=== PATIENT | female | born 1935 | race Caucasian/White ===

== ENCOUNTER 2024-02-16 16:32 | Observation (INO) | payer OTHER, SELFPAY ==
--- NOTE | 2024-02-16 09:52 | ED.GENMED ---
History of Present Illness
<Eileen Alvarez PA-C - Last Filed: 02/16/24 16:59>
General
Chief Complaint: Chest Pain
Source: patient
Exam Limitations: none
Time Seen by Provider: 02/16/24 09:33
Nursing documentation reviewed up to this point in time: agreed with
History of Present Illness
History of Present Illness:
pt is a 88 y/o F with h/o former smoking
CHF on lasix
followed by [facility]
says she woke up and a little while later around 6 am started feeling SOB with wheezing.
she has previously had inhaler/neb for something like this when she had CHF but she didn't use it today. pt has not had any significant ches tpain, pleuritic cp, cough, fever/chills, cold symptoms.
she denies leg swelling
she thinks the wheezing is a little better now
has had covid vaccine.
pt is on prednisone taper for TMJ that her PCP prescribed
she has had it for 5 days
Past History
<Eileen Alvarez PA-C - Last Filed: 02/16/24 16:59>
Past History
ED Past Medical History: CHF, COPD and HTN
Social History
Tobacco: Former smoker
Alcohol: None
Review of Systems
<Eileen Alvarez PA-C - Last Filed: 02/16/24 16:59>
Review of Systems
Allergies reviewed?: Yes
All Other Systems: Not applicable
Phy Exam
<Eileen Alvarez PA-C - Last Filed: 02/16/24 16:59>
Physical Exam
Physical Exam:
GENERAL: Alert , in no apparent distress
EYE: pupils equal and reactive
NECK: Supple
ENT: o/p clr, mmm.
CARDIAC: Regular rate and rhythm .+ systolic murmur L sternal border, no edema
LUNGS: faint end exp wheezing, no resp distress, moving good air, no cough
ABDOMEN: Soft, without focal tenderness, no r/g, no cvat, normal bowel sounds
NEUROLOGICAL: Alert and oriented, no focal neuro deficits
SKIN: Warm and dry, skin intact.
MUSCULOSKELETAL: No edema, well perfused. neg jeffrey's sign
PSYCH: Normal and appropriate interaction.
Scores
<Eileen Alvarez PA-C - Last Filed: 02/16/24 16:59>
Heart Score for Chest Pain Patients
STEMI patient?: No
History: Slightly or Non-Suspicious
ECG: Nonspecific Repolarization
Age: >/= 65 years
Risk Factors: >/= 3 Risk Factors or History of CAD
Troponin: </= Normal Limit
Heart Score for Chest Pain Patients: 5
Heart Score Risk: 20.3% MACE over next 6 weeks
<Familia Crandall DO - Last Filed: 02/16/24 17:02>
Heart Score for Chest Pain Patients
Heart Score for Chest Pain Patients: 5
Heart Score Risk: 20.3% MACE over next 6 weeks
Course
<Eileen Alvarez PA-C - Last Filed: 02/16/24 16:59>
Orders/Labs/Results
Orders:
Orders
02/16/24 09:19
Electrocardiogram (*1) Urgent
Reason for Study: Chest Pain
EKG- Treatment ONCE
02/16/24 09:51
Ipratropium/Albuterol Sulfate [Duoneb] 3 ml INH R NOW STA
CR Chest - 2 Views Urgent
Comment:
Reason For Exam: wheezing
02/16/24 10:24
COVID-19 Antigen Urgent
Source: Nasal Swab
Complete Blood Count/With Diff Urgent
Comprehensive Metabolic Panel Urgent
NT-proBNP Urgent
Troponin I Urgent
Influenza A+B Rapid Molecular Urgent
ELIS Source: Nasal Swab
Specimen Description:
02/16/24 11:45
Furosemide [Lasix] 40 mg IV NOW STA
02/16/24 16:02
Admit/Transfer Patient As Directed
Co-Sign Provider:
Level of Care: Observation services
Assign to:: Telemetry
Physician / Group: wilfredo
Diagnosis: viral bronchitis
Reason for Telemetry: Arrhythmia
Date to Stop Telemetry: 02/19/24
Time to Stop Telemetry: 11:00
PRN Pain Medication Management As Directed
May give lesser potent ordered pain med per pt: Yes
preference::
Protocol:: Medication orders for pain may be administered in a
manner that supports deferring to patient preference
when the pt is:
- Requesting an ordered lesser potent pain medication.
Least to most potent pain medications are defined
as: acetaminophen < NSAID < tramadol < opioids
(morphine, oxycodone, hydromorphone).
- Requesting a lesser dose of the same medication IF
ORDERED.
- Requesting a less intrusive route of administration
if both routes are prescribed by the provider (PO <
IV).
02/16/24 16:03
Code Status As Directed
Resuscitation Status: Do not resuscitate
Reached after discussion with pt or family/Healthcare POA: Yes
DNR Bracelet Application ONCE
02/19/24 11:00
DC Protocol for Telemetry ONCE
Abnormal Lab Results
02/16/24
10:24
WBC 18.8 H 10^3/uL
(4.8-10.8)
RBC 4.08 L 10^6/uL
(4.20-5.40)
MCH 32.1 H pg
(27.0-31.0)
Abs Immat Gran (auto) 0.1 H 10^3/uL
(0-0.05)
Absolute Neuts (auto) 15.4 H 10^3/uL
(1.4-6.5)
Absolute Monos (auto) 1.9 H 10^3/uL
(0.1-0.6)
Neutrophils % 81.9 H %
(42.2-75.2)
Lymphocytes % 7.0 L %
(20.5-51.1)
Monocytes % 10.2 H %
(1.7-9.3)
BUN 34 H mg/dl
(7-17)
02/16/24 10:24
02/16/24 10:24
Vital Signs
Blood pressure: 142/90
Initial and Last Documented VS:
Initial Vital Signs
Temp Pulse Resp Pulse Ox
99.5 F 60 22 92
02/16/24 09:20 02/16/24 09:20 02/16/24 09:20 02/16/24 09:20
Last Documented Vital Signs
Temp Pulse Resp BP Pulse Ox
99.5 F 58 21 141/48 96
02/16/24 09:20 02/16/24 16:30 02/16/24 16:30 02/16/24 16:00 02/16/24 16:30
<Familia Crandall, - Last Filed: 02/16/24 17:02>
Orders/Labs/Results
Orders:
Orders
02/16/24 09:19
Electrocardiogram (*1) Urgent
Reason for Study: Chest Pain
EKG- Treatment ONCE
02/16/24 09:51
Ipratropium/Albuterol Sulfate [Duoneb] 3 ml INH R NOW STA
CR Chest - 2 Views Urgent
Comment:
Reason For Exam: wheezing
02/16/24 10:24
COVID-19 Antigen Urgent
Source: Nasal Swab
Complete Blood Count/With Diff Urgent
Comprehensive Metabolic Panel Urgent
NT-proBNP Urgent
Troponin I Urgent
Influenza A+B Rapid Molecular Urgent
ELIS Source: Nasal Swab
Specimen Description:
02/16/24 11:45
Furosemide [Lasix] 40 mg IV NOW STA
02/16/24 16:02
Admit/Transfer Patient As Directed
Co-Sign Provider:
Level of Care: Observation services
Assign to:: Telemetry
Physician / Group: wilfredo
Diagnosis: viral bronchitis
Reason for Telemetry: Arrhythmia
Date to Stop Telemetry: 02/19/24
Time to Stop Telemetry: 11:00
PRN Pain Medication Management As Directed
May give lesser potent ordered pain med per pt: Yes
preference::
Protocol:: Medication orders for pain may be administered in a
manner that supports deferring to patient preference
when the pt is:
- Requesting an ordered lesser potent pain medication.
Least to most potent pain medications are defined
as: acetaminophen < NSAID < tramadol < opioids
(morphine, oxycodone, hydromorphone).
- Requesting a lesser dose of the same medication IF
ORDERED.
- Requesting a less intrusive route of administration
if both routes are prescribed by the provider (PO <
IV).
02/16/24 16:03
Code Status As Directed
Resuscitation Status: Do not resuscitate
Reached after discussion with pt or family/Healthcare POA: Yes
DNR Bracelet Application ONCE
02/19/24 11:00
DC Protocol for Telemetry ONCE
Abnormal Lab Results
02/16/24
10:24
WBC 18.8 H 10^3/uL
(4.8-10.8)
RBC 4.08 L 10^6/uL
(4.20-5.40)
MCH 32.1 H pg
(27.0-31.0)
Abs Immat Gran (auto) 0.1 H 10^3/uL
(0-0.05)
Absolute Neuts (auto) 15.4 H 10^3/uL
(1.4-6.5)
Absolute Monos (auto) 1.9 H 10^3/uL
(0.1-0.6)
Neutrophils % 81.9 H %
(42.2-75.2)
Lymphocytes % 7.0 L %
(20.5-51.1)
Monocytes % 10.2 H %
(1.7-9.3)
BUN 34 H mg/dl
(7-17)
02/16/24 10:24
02/16/24 10:24
Vital Signs
Initial and Last Documented VS:
Initial Vital Signs
Temp Pulse Resp Pulse Ox
99.5 F 60 22 92
02/16/24 09:20 02/16/24 09:20 02/16/24 09:20 02/16/24 09:20
Last Documented Vital Signs
Temp Pulse Resp BP Pulse Ox
99.5 F 58 21 141/48 96
02/16/24 09:20 02/16/24 16:30 02/16/24 16:30 02/16/24 16:00 02/16/24 16:30
<Eileen Alvarez PA-C - Last Filed: 02/16/24 16:59>
MDM/Problems Addressed
Differential Diagnosis Includes:
covid, flu, bronchitis, chf, pulm edema
MDM/Problems Addressed:
88 y.o F
some h/o reactive airway/copd previously
CHF on lasix
here with sob and hweezing this morning
no significant chest pain
denies worsening edema
denies cough/cold sypmtoms
has bene on steroids for TMJ flare up
mild wheezing initially borderline low pulse ox
no tachypnea
no significant edema
+ murmur
covid flu neg
duoneb given and pt reasssessed 1100 and pt has improved breath sounds; she had some transient lower pulse ox 88% but up to 92% with clearing her throat
pt's wbc is 18 but she has been ons teroids;
d/w dr. crandall
will admit for lasix, steroids, duonebs;
requiring 2 L o2
<Eileen Alvarez PA-C - Last Filed: 02/16/24 16:59>
*Critical Care Note
Total Time (30-74mins, 75-104mins- exclusive of procedures): Not Applicable
ED Attending Note
<Eileen Alvarez PA-C - Last Filed: 02/16/24 16:59>
-
Portions of this chart may have been created with voice recognition software.� Occasional wrong word or��sound alike� substitutions may have occurred due to the inherent limitations of voice recognition software.
<Familia Crandall DO - Last Filed: 02/16/24 17:02>
ED Attending Note
I performed the substantive portion of visit, reviewed & personally made and approve the management plan that is documented in note by myself or ARSH.: Yes
Discharge Plan
Departure
Patient Disposition: Admit
Date of Disposition: 02/16/24
Time of Disposition: 11:46
Admit to: Telemetry
Presentation/result/management discussed w/ accepting MD/DO: Hospitalist
Condition: Fair
Covid-19: Negative COVID-19
Discharge Problem:
CHF (congestive heart failure)
Interventions
Interventions:
*Risk Screen - Suicide Last Done: 02/16/24 09:20
*General Assessment Last Done: 02/16/24 10:37
*Neglect/Abuse Screening Last Done: 02/16/24 09:20
ED- Fall Risk Assessment Last Done: 02/16/24 10:52
*ED COVID-19 Vaccine History Last Done: 02/16/24 09:20
ED- Cardiac Assessment Last Done: 02/16/24 10:52
ED- Pulmonary Assessment Last Done: 02/16/24 10:52
[2024-02-16 10:35] VITALS: BMI 36.9
[2024-02-16 10:37] LABS: % Basophils 0.2 % (0-2); % Eosinophils 0.2 % (0-6); % Immature Granulocytes 0.5 % (0-0.5); % Monocytes 10.2 % (1.7-9.3); % Neutrophils 81.9 % (42.2-75.2); Absolute Immature Granulocytes 0.1 10^3/uL (0-0.05); Absolute Lymphocytes 1.3 10^3/uL (1.2-3.4); Absolute Monocytes 1.9 10^3/uL (0.1-0.6); Absolute Neutrophils 15.4 10^3/uL (1.4-6.5); Hematocrit 39.1 % (37.0-47.0); Hemoglobin 13.1 g/dL (12.0-16.0); Mean Corp Hgb Conc. 33.5 g/dL (33.0-37.0); Mean Corpuscular Hgb 32.1 pg (27.0-31.0); Mean Corpuscular Volume 95.8 fL (81.0-99.0); Mean Platelet Volume 9.7 fL (7.4-10.4); Nucleated Red Blood Cells % 0 %; Platelet Count 296 10^3/uL (130-400); Red Blood Cell Count 4.08 10^6/uL (4.20-5.40); Red Cell Dist. Width 13.7 % (11.5-14.5); White Blood Cell Count 18.8 10^3/uL (4.8-10.8)
[2024-02-16] MEDS: DUONEB 3 ML INH ×2 (10:39→20:25)
[2024-02-16 10:51] LABS: COVID-19 Antigen Negative (Negative)
[2024-02-16 10:52] LABS: ALT (SGPT) 26 U/L (0-35); AST (SGOT) 32 U/L (14-36); Albumin 4.2 g/dl (3.5-5.0); Alkaline Phosphatase 96 U/L (38-126); Blood Urea Nitrogen 34 mg/dl (7-17); Carbon Dioxide 29 mmol/L (22-30); Chloride 103 mmol/L (98-107); Estimated Creatinine Clearance 39 ml/min; Glucose 89 mg/dl (70-99); Sodium 144 mmol/L (135-145); Total Bilirubin 0.8 mg/dl (0.2-1.3); Total Protein 6.9 g/dl (6.3-8.2); eGFR > 60.00
[2024-02-16 11:03] LABS: NT-proBNP 4450 pg/ml; Troponin I < 0.012 ng/ml
[2024-02-16 11:29] VITALS: BP 156/71
[2024-02-16 12:00] VITALS: BP 137/61
[2024-02-16] MEDS: LASIX 40 MG IV (12:06)
[2024-02-16 16:00] VITALS: BP 141/48
--- NOTE | 2024-02-16 16:06 | HPS.HSE ---
Family Physician
-
Family Physician: Bernice Matute
Chief Complaint
-
shortness of breath
History of Present Illness
88-year-old past medical history of CHF followed at [facility], hypertension, sciatica, hyperlipidemia, anxiety/depression, TMJ, presenting with shortness of breath with wheezing starting yesterday. She denies any cough. He denies any sore
throat or runny nose or fevers or chills. She denies any lower extremity edema.
Patient denies any chest pain, cough, fever chills or cold symptoms. Denies leg swelling. Denies any weight gain. She has been compliant with her Lasix.
She is a former smoker. She denies alcohol use. No history of asthma or COPD.
She is currently taking a Medrol Dosepak for TMJ.
Medical History
Past Medical History
Past Medical History: Reports Other ( CHF followed at [facility], hypertension, sciatica, hyperlipidemia, anxiety/depression, TMJ)
Past Surgical History: Reports None
Social History
Tobacco: Former Smoker
Alcohol: None
Drug: None
Family History
Family History: Not pertinent
Allergies / Home Medications
Allergies reflects when Allergies were last updated in [employer].
Home Medications with original date entered in [employer]
Allergy/Medication List:
Allergies
Allergy/AdvReac Type Severity Reaction Status Date / Time
No Known Allergies Allergy Verified 02/16/24 09:32
Home Medications
amlodipine 10 mg tablet 10 mg PO DAILY 02/16/24
aspirin 81 mg tablet,delayed release 81 mg PO DAILY 02/16/24
atenolol 50 mg tablet 50 mg PO BID 02/16/24
citalopram 10 mg tablet 10 mg PO DAILY 02/16/24
clobetasol 0.05 % topical ointment 1 applic topical DAILY 02/16/24
ezetimibe 10 mg tablet 10 mg PO DAILY 02/16/24
furosemide 20 mg tablet 20 mg PO DAILY 02/16/24
gabapentin 100 mg capsule 200 mg PO TID 02/16/24
methylprednisolone 4 mg tablets in a dose pack (Medrol (Chris)) 4 mg PO PER PKG DIR 02/16/24
rosuvastatin 40 mg tablet 40 mg PO HS 02/16/24
Review of Systems
-
History Source: Patient
A 12 point ROS was completed and negative except as noted: Yes
Constitutional: Reports No Symptoms
EENT: Reports No Symptoms
Respiratory: Reports See HPI
Cardiac: Reports No Symptoms
Abdomen/GI: Reports No Symptoms
: Reports No Symptoms
Musculoskeletal: Reports No Symptoms
Skin: Reports No Symptoms
Neurological: Reports No Symptoms
Endocrine: Reports No Symptoms
Hematologic/Lymphatic: Reports No Symptoms
Psych: Reports No Symptoms
Physical Exam
Vital Signs
Vital Signs
Temp Pulse Resp BP Pulse Ox
99.5 F 61 14 137/61 95
02/16/24 09:20 02/16/24 15:30 02/16/24 15:30 02/16/24 12:00 02/16/24 15:30
Physical Exam
General: Well Developed, Well Nourished and No Apparent Distress
HEENT: NormoCephalic, Moist mucous membranes and Atraumatic
Respiratory: Wheezes
Cardiac: S1/S2 and Regular Rhythm; No Murmur or Rub
GI: Soft, Non Tender, Non Distended and Normal Bowel Sounds; No Organomegaly
Rectal: Deferred by Provider
Musculoskeletal: No Clubbing, No Cyanosis and No Edema
Skin: No Rash
Neuro: Nonfocal/grossly intact
Laboratory Results
-
02/16/24 10:24
02/16/24 10:24
Laboratory Results
Total Bilirubin 0.8 mg/dl (0.2-1.3) 02/16/24 10:24
AST 32 U/L (14-36) 02/16/24 10:24
ALT 26 U/L (0-35) 02/16/24 10:24
Alkaline Phosphatase 96 U/L (38-126) 02/16/24 10:24
Troponin I < 0.012 ng/ml 02/16/24 10:24
Data Reviewed
-
Lab Data: Labs Reviewed by me
Old Records: Reviewed
Impression/Plan
-
IMPRESSION:
PLAN:
# Acute bronchitis likely viral versus less likely CHF exacerbation
-Saturating 88 to 90%, currently on 2 L
-Faint end expiratory wheezing on examination
-COVID-negative
-Cardiac BNP of 4000 no prior to compare to, however presentation more consistent with viral bronchitis/reactive airway disease than heart failure
-Chest x-ray unremarkable
-40 IV Lasix give, continue 20 mg oral daily thereafter
-DuoNebs every 6 hours
-Dexamethasone 4 mg every 12
# Leukocytosis secondary to recent steroids
-Continue to monitor
History of heart failure unspecified type
-Continue Lasix
-Follows at [facility]
Essential hypertension
-Continue amlodipine, atenolol
Anxiety/depression
-Continue citalopram
Hyperlipidemia
-Continue statin, Zetia
Sciatica
-Continue gabapentin
History of TMJ
-Currently finishing Medrol Dosepak
DNR/DNI
DVT prophylaxis�heparin
Cardiac diet
[2024-02-16 17:30] VITALS: BMI 35.9
[2024-02-16 17:37] VITALS: BP 155/53
[2024-02-16 18:03] VITALS: BMI 35.9
[2024-02-16] MEDS: DECADRON 4 MG IV (18:37)
[2024-02-16 19:54] VITALS: BP 142/57
[2024-02-16] MEDS: TENORMIN 50 MG PO (20:06)
[2024-02-16] MEDS: HEPARIN 5000 UNITS SC (20:06)
[2024-02-16] MEDS: CRESTOR 40 MG PO (20:07)
[2024-02-16] MEDS: NEURONTIN 200 MG PO (20:07)
[2024-02-16 23:05] VITALS: BP 139/51
[2024-02-17 03:28] VITALS: BP 130/51
[2024-02-17] MEDS: DECADRON 4 MG IV ×2 (05:42→18:30)
[2024-02-17 05:45] VITALS: BMI 35.5
[2024-02-17 07:45] VITALS: BP 143/51
[2024-02-17] MEDS: DUONEB 3 ML INH ×4 (07:58→19:40)
[2024-02-17] MEDS: NEURONTIN 200 MG PO ×3 (08:33→21:40)
[2024-02-17 08:34] LABS: % Immature Granulocytes 0.7 % (0-0.5); % Lymphocytes 11.5 % (20.5-51.1); % Monocytes 1.7 % (1.7-9.3); % Neutrophils 86.1 % (42.2-75.2); Absolute Immature Granulocytes 0.1 10^3/uL (0-0.05); Absolute Monocytes 0.2 10^3/uL (0.1-0.6); Absolute Neutrophils 7.6 10^3/uL (1.4-6.5); Hematocrit 38.6 % (37.0-47.0); Hemoglobin 12.4 g/dL (12.0-16.0); Mean Corp Hgb Conc. 32.1 g/dL (33.0-37.0); Mean Corpuscular Volume 96.5 fL (81.0-99.0); Mean Platelet Volume 9.6 fL (7.4-10.4); Nucleated Red Blood Cells % 0 %; Platelet Count 266 10^3/uL (130-400); Red Cell Dist. Width 13.6 % (11.5-14.5); White Blood Cell Count 8.9 10^3/uL (4.8-10.8)
[2024-02-17] MEDS: TENORMIN 50 MG PO ×2 (08:34→21:48)
[2024-02-17] MEDS: ASPIR LOW (ENTERIC COATED) 81 MG PO (08:34)
[2024-02-17] MEDS: ZETIA 10 MG PO (08:34)
[2024-02-17] MEDS: LASIX 20 MG PO (08:34)
[2024-02-17] MEDS: CELEXA 10 MG PO (08:35)
[2024-02-17] MEDS: NORVASC 10 MG PO (08:35)
[2024-02-17] MEDS: CLOBETASOL PROPIONATE 0.05% OINTMENT 1 APPLIC TOPICAL (08:36)
[2024-02-17] MEDS: HEPARIN 5000 UNITS SC ×2 (08:36→21:40)
[2024-02-17 09:15] LABS: ALT (SGPT) 22 U/L (0-35); AST (SGOT) 24 U/L (14-36); Albumin 3.9 g/dl (3.5-5.0); Alkaline Phosphatase 82 U/L (38-126); Blood Urea Nitrogen 30 mg/dl (7-17); Calcium 9.1 mg/dl (8.4-10.2); Carbon Dioxide 27 mmol/L (22-30); Chloride 103 mmol/L (98-107); Estimated Creatinine Clearance 34 ml/min; Glucose 157 mg/dl (70-99); Potassium 4.3 mmol/L (3.5-5.1); Sodium 141 mmol/L (135-145); Total Bilirubin 1.2 mg/dl (0.2-1.3); Total Protein 6.5 g/dl (6.3-8.2); eGFR 54.19
[2024-02-17 11:18] VITALS: BP 120/48
--- NOTE | 2024-02-17 11:49 | CM ---
CM reviewed chart, patient seen bedside, initial assessment completed. Patient resides with her daughter, grandchildren, niece, in a single story home, two small steps to enter. Patient denies use of DME, VN, or SNF history. Patient confirms PCP
Bernice Matute, pharmacy [facility] [place], reports some prescription coverage. Patient denies insecurities at home. Patient reports family will provide transportation home when stable. [employer] form reviewed, signed, placed in chart, patient
provided with copy. CM will continue to follow for all discharge planning needs.
Plan; home with family, no needs.
--- NOTE | 2024-02-17 12:45 | W.PN.HOSP.TC ---
Today's Communication/Plan
-
Monitor vital signs
see plan
Check echo
Continue Lasix
Continue steroids, nebs
Discussed with juan over the phone
Assessment / Plan
Assessment / Plan
General: Well Developed, Well Nourished and No Apparent Distress
HEENT: NormoCephalic, Moist mucous membranes and Atraumatic
Respiratory: CTA,no rhonchi
Cardiac: S1/S2 and Regular Rhythm; No Murmur or Rub
GI: Soft, Non Tender, Non Distended and Normal Bowel Sounds
Musculoskeletal: No Edema
Skin: No Rash
Neuro: Nonfocal/grossly intact
SOB and wheezing likely 2/2 Acute bronchitis likely viral and acute on chronic CHF exacerbation
Mild acute hypoxic respiratory insufficiency in the ED
now on room air
-COVID-negative
-Cardiac BNP of 4000 no prior to compare to, she does follow-up with cardiology at [facility]
-Chest x-ray unremarkable
Responded well to IV Lasix in the ED, continue with p.o. Lasix. Check echo
-DuoNebs
-Dexamethasone 4 mg every 12
# Leukocytosis secondary to recent steroids
-Continue to monitor
History of heart failure unspecified type
-Continue Lasix
-Follows at [facility]
Essential hypertension
-Continue amlodipine, atenolol
Anxiety/depression
-Continue citalopram
Hyperlipidemia
-Continue statin, Zetia
Sciatica
-Continue gabapentin
History of TMJ
-Currently finishing Medrol Dosepak
DNR/DNI
DVT prophylaxis�heparin
Anticipated Discharge: Within 24 hours
Subjective/Interval History
-
Date of Service: February 17, 2024
denies pain
Objective Data
-
Labs:
Laboratory Results
02/17/24
08:14
WBC 8.9
Hgb 12.4
Hct 38.6
Plt Count 266
Sodium 141
Potassium 4.3
Chloride 103
Carbon Dioxide 27
BUN 30 H
Creatinine 1.0
Glucose 157 H
Calcium 9.1
Total Bilirubin 1.2
AST 24
ALT 22
Alkaline Phosphatase 82
Vital Signs:
Vital Signs
Temp Pulse Resp BP Pulse Ox
98.0 F 53 18 120/48 93
02/17/24 11:18 02/17/24 11:27 02/17/24 11:27 02/17/24 11:18 02/17/24 11:27
I&O
02/16/24 02/17/24 02/18/24
06:59 06:59 06:59
Intake Total 240 / 240
Balance 240 / 240
[2024-02-17 15:00] VITALS: BP 139/56
[2024-02-17 19:46] VITALS: BP 147/51
[2024-02-17] MEDS: CRESTOR 40 MG PO (21:40)
[2024-02-17 23:30] VITALS: BP 125/45
[2024-02-18 03:20] VITALS: BP 134/48
[2024-02-18] MEDS: DECADRON 4 MG IV (05:07)
[2024-02-18 06:00] VITALS: BMI 35.9
[2024-02-18 07:00] VITALS: BP 147/53
[2024-02-18] MEDS: DUONEB 3 ML INH (07:20)
[2024-02-18] MEDS: ASPIR LOW (ENTERIC COATED) 81 MG PO (07:55)
[2024-02-18] MEDS: TENORMIN 50 MG PO (07:55)
[2024-02-18] MEDS: NEURONTIN 200 MG PO (07:56)
[2024-02-18] MEDS: NORVASC 10 MG PO (07:56)
[2024-02-18] MEDS: LASIX 20 MG PO (07:56)
[2024-02-18] MEDS: CELEXA 10 MG PO (07:56)
[2024-02-18] MEDS: CLOBETASOL PROPIONATE 0.05% OINTMENT 1 APPLIC TOPICAL (07:57)
[2024-02-18] MEDS: ZETIA 10 MG PO (07:57)
[2024-02-18] MEDS: HEPARIN 5000 UNITS SC (07:57)
[2024-02-18 08:51] LABS: % Basophils 0.2 % (0-2); % Immature Granulocytes 0.7 % (0-0.5); % Lymphocytes 10.9 % (20.5-51.1); % Monocytes 3.2 % (1.7-9.3); Absolute Immature Granulocytes 0.1 10^3/uL (0-0.05); Absolute Lymphocytes 1.2 10^3/uL (1.2-3.4); Absolute Monocytes 0.3 10^3/uL (0.1-0.6); Absolute Neutrophils 9.1 10^3/uL (1.4-6.5); Hematocrit 39.3 % (37.0-47.0); Mean Corp Hgb Conc. 33.1 g/dL (33.0-37.0); Mean Corpuscular Hgb 31.6 pg (27.0-31.0); Mean Corpuscular Volume 95.4 fL (81.0-99.0); Nucleated Red Blood Cells % 0 %; Platelet Count 291 10^3/uL (130-400); Red Blood Cell Count 4.12 10^6/uL (4.20-5.40); Red Cell Dist. Width 13.6 % (11.5-14.5); White Blood Cell Count 10.7 10^3/uL (4.8-10.8)
[2024-02-18 09:13] LABS: Blood Urea Nitrogen 38 mg/dl (7-17); Calcium 9.2 mg/dl (8.4-10.2); Carbon Dioxide 25 mmol/L (22-30); Chloride 104 mmol/L (98-107); Estimated Creatinine Clearance 34 ml/min; Glucose 114 mg/dl (70-99); Potassium 4.6 mmol/L (3.5-5.1); Sodium 139 mmol/L (135-145); eGFR 54.19
[2024-02-18 11:00] VITALS: BP 138/57
--- NOTE | 2024-02-18 11:10 | W.PN.HOSP.TC ---
Today's Communication/Plan
-
Monitor vital signs
see plan
Discharge today with instructions to follow-up with his outpatient [employer] operator
Continue with Lasix
Albuterol as needed
Discussed with daughter over the phone
Time of discharge 36 minutes
Assessment / Plan
Assessment / Plan
General: Well Developed, Well Nourished and No Apparent Distress
HEENT: NormoCephalic, Moist mucous membranes and Atraumatic
Respiratory: CTA,no rhonchi
Cardiac: S1/S2 and Regular Rhythm; No Murmur or Rub
GI: Soft, Non Tender, Non Distended and Normal Bowel Sounds
Musculoskeletal: No Edema
Skin: No Rash
Neuro: Nonfocal/grossly intact
SOB and wheezing likely 2/2 Acute bronchitis likely viral and acute on chronic CHF with preserved ejection fraction exacerbation
Mild acute hypoxic respiratory insufficiency in the ED
now on room air
-COVID-negative
-Cardiac BNP of 4000 no prior to compare to, she does follow-up with cardiology at [facility]
-Chest x-ray unremarkable
Responded well to IV Lasix in the ED, continue with p.o. Lasix. Check echo with stage II diastolic dysfunction, severe mitral regurgitation. I discussed with Dr. Shipley who advised patient to follow-up with his outpatient cardiology outpatient.
This was discussed by me with patient and her daughter.
Albuterol as needed on discharge
No need for steroids on discharge.
# Leukocytosis secondary to recent steroids
-Continue to monitor
History of heart failure unspecified type
-Continue Lasix
-Follows at [facility]
Essential hypertension
-Continue amlodipine, atenolol
Anxiety/depression
-Continue citalopram
Hyperlipidemia
-Continue statin, Zetia
Sciatica
-Continue gabapentin
History of TMJ
-Currently finishing Medrol Dosepak
DNR/DNI
DVT prophylaxis�heparin
Anticipated Discharge: Today
Subjective/Interval History
-
Date of Service: February 18, 2024
denies pain
Objective Data
-
Labs:
Laboratory Results
02/18/24
08:01
WBC 10.7
Hgb 13.0
Hct 39.3
Plt Count 291
Sodium 139
Potassium 4.6
Chloride 104
Carbon Dioxide 25
BUN 38 H
Creatinine 1.0
Glucose 114 H
Calcium 9.2
Vital Signs:
Vital Signs
Temp Pulse Resp BP Pulse Ox
98.2 F 58 16 147/53 98
02/18/24 07:00 02/18/24 07:26 02/18/24 07:26 02/18/24 07:00 02/18/24 07:26
I&O
02/17/24 02/18/24 02/19/24
06:59 06:59 06:59
Intake Total 240 / 240 420 / 420
Balance 240 / 240 420 / 420
--- NOTE | 2024-02-18 11:15 | W.DCSUMMARY ---
Discharge Summary
Discharge Data
Date of Admission: 02/16/24
Date of Discharge: 02/18/24
-
Pending Results: No
Hospital Course
88-year-old with past medical history of CHF, essential hypertension, mitral regurgitation, anxiety/depression, hyperlipidemia, sciatica, TMJ came to the hospital with acute on chronic congestive heart failure exacerbation. There was also suspicion
of patient having possible viral bronchitis which over time continue to improve. Cardiac BNP was elevated and patient was given IV Lasix on admission which improved her symptoms. She got an echocardiogram which showed stage II diastolic
dysfunction and severe mitral regurgitation with mitral valve prolapse. This was discussed with her cnmt here who recommended patient follow-up with her outpatient cnmt since her symptoms are improving. Patient instructed to get
cardiology appointment as soon as possible. Patient symptoms continue to improve over time and she was on room air prior to discharge. Since her symptoms improved, she was then discharged home with instructions to follow-up with all her physicians
outpatient.
Discharge Plan
-
Patient Disposition: Home (Routine Discharge)
Discharge Diagnosis/Procedures: Acute hypoxic respiratory insufficiency likely secondary to acute on chronic congestive heart failure exacerbation, suspected viral bronchitis
Severe mitral regurgitation secondary to mitral valve prolapse
Diet: As tolerated
Activity: As tolerated
Driving Restrictions: As prior to admission
Bathing Restrictions: None
Activity Restrictions/Additional Instructions:
Please follow-up with your cnmt in 1 to 2 weeks.
Referrals:
Bernice Matute NP [Family Provider] - in less than 1 week
Prescriptions:
New
albuterol sulfate 90 mcg/actuation HFA aerosol inhaler
2 puff inhalation Q6H PRN (Reason: shortness of breath or wheezing) Qty: 6.7 0RF
Continued
citalopram 10 mg Tablet
10 mg PO DAILY
aspirin 81 mg Tablet,Delayed Release (Dr/Ec)
81 mg PO DAILY
amlodipine 10 mg Tablet
10 mg PO DAILY
furosemide 20 mg Tablet
20 mg PO DAILY
gabapentin 100 mg Capsule
200 mg PO TID
clobetasol 0.05 % Ointment
1 applic TOPICAL DAILY
Rx Instructions:
apply to right foot
atenolol 50 mg Tablet
50 mg PO BID
ezetimibe 10 mg Tablet
10 mg PO DAILY
rosuvastatin 40 mg Tablet
40 mg PO HS
Discontinued
methylprednisolone [Medrol (Chris)] 4 mg Tablets,Dose Pack
4 mg PO PER PKG DIR
Patient Comments:
02/16/2024: Pt is on 2nd to last day
Discharge Orders:
Discharge Patient (As Directed); Ordered 02/18/24
Ordered By: Jeb Samuel
Discharge Date and Time
Discharge Date/Time: 02/18/24 15:25
Print Language: KAZAKH
--- NOTE | 2024-02-18 11:39 | CM ---
CM reviewed chart, patient seen bedside, for discharge today. Patient reports family will provide transport home, denies needs upon discharge. CM will continue to follow for all discharge planning needs.
Plan; home no needs.
== END 2024-02-18 15:25 | disposition home or self-care (01) ==
LOC: 4 WEST ACU 16:32
PROVIDERS: Physician Assistant; ADMITTING PHYSICIAN Hospitalist; ATTENDING PHYSICIAN Internal Medicine; EMERGENCY PHYSICIAN Emergency Medicine; FAMILY PHYSICIAN Nurse Practitioner Adult Health
DX: J44.0 Chronic obstructive pulmonary disease with (acute) lower respiratory infection (principal); J20.8 Acute bronchitis due to other specified organisms; R07.9 Chest pain, unspecified; I11.0 Hypertensive heart disease with heart failure; R06.02 Shortness of breath; F32.A Depression, unspecified; I50.33 Acute on chronic diastolic (congestive) heart failure; I70.0 Atherosclerosis of aorta; R94.31 Abnormal electrocardiogram [ECG] [EKG]; I08.1 Rheumatic disorders of both mitral and tricuspid valves; R00.1 Bradycardia, unspecified; E78.5 Hyperlipidemia, unspecified; F41.9 Anxiety disorder, unspecified; T38.0X5A Adverse effect of glucocorticoids and synthetic analogues, initial encounter; R09.02 Hypoxemia; R06.89 Other abnormalities of breathing; R06.2 Wheezing; M26.659 Arthropathy of unspecified temporomandibular joint; B97.89 Other viral agents as the cause of diseases classified elsewhere; Z66 Do not resuscitate; Z87.891 Personal history of nicotine dependence; Z79.82 Long term (current) use of aspirin; Z79.52 Long term (current) use of systemic steroids; Z11.52 Encounter for screening for COVID-19
CPT/HCPCS: 71046; 80048; 80053; 83880; 84484; 85025; 87502; 87811; 93005; 93306; 94640; 96374; 99285